=== PATIENT | male | born 1980 | race Two or more races ===

== ENCOUNTER 2019-04-22 06:58 | Emergency (ER) | payer MEDICAID, OTHER ==
[~2019-04-22] VITALS: Ht 177.8 cm; Wt 77.1 kg
[2019-04-22 07:35] VITALS: BP 146/64
[2019-04-22] MEDS ORDERED: LIDOCAINE 1% HCL (LOCAL ANESTH.) INJ 20ML MDV IJ ONE (08:15)
[2019-04-22] MEDS ORDERED: cefTRIAXone SOD 1,000 MG VL IM ONE (08:45)
== END 2019-04-22 09:23 | disposition home or self-care (01) ==
LOC: ER 06:58
DX: S61.214A Laceration without foreign body of right ring finger without damage to nail, initial encounter (principal); X58.XXXA Exposure to other specified factors, initial encounter; Y93.89 Activity, other specified; Y92.89 Other specified places as the place of occurrence of the external cause; Y99.8 Other external cause status
CPT/HCPCS: 12004; 73130; 96372; 99283; J0696; J2001

== ENCOUNTER 2019-04-23 08:14 | Emergency (ER) | payer MEDICAID ==
[~2019-04-23] VITALS: Ht 177.8 cm; Wt 77.1 kg
[2019-04-23 08:38] VITALS: BP 140/79
== END 2019-04-23 09:36 | disposition left against medical advice (07) ==
LOC: ER 08:14
DX: R51 Headache (principal); Z53.21 Procedure and treatment not carried out due to patient leaving prior to being seen by health care provider